=== PATIENT | female | born 1975 | race Caucasian/White ===

== ENCOUNTER 2019-12-07 17:29 | Emergency (ER) | payer SELFPAY ==
[~2019-12-07] VITALS: Ht 154.9 cm; Wt 88.4 kg
[~2019-12-07 17:29] MED LIST: ALBU2.5V8 INH; CIPR250T30 PO; DIPH25CA58 PO; HYDR-2761 PO; MINO100C42 PO; PRED20TA PO; TRAZ-118 PO
[2019-12-07 17:47] VITALS: BP 127/91
[2019-12-07] MEDS ORDERED: PRED50TA PO (18:05)
[2019-12-07] MEDS ORDERED: FLUT9.9S NS (18:05)
--- NOTE | 2019-12-07 18:06 | PHYS DOC ---
Past Medical History Past Medical History: Anxiety, Asthma Past Surgical History: Tonsillectomy Smoking Status: Never Smoker Alcohol Use: Occasionally Drug Use: None General Adult EDM: Chief Complaint: EARACHE/EAR PAIN HPI: HPI: Patient is a 44 year old female with a history of asthma, anxiety, seasonal allergies, who presents to the ED today complaining of nasal congestion, bilateral ear pain, symptoms have been going on for couple days. She states she is currently using Claritin after switching from Zyrtec. Patient states her job sent her to the ED to be evaluated to be tested for COVID19. She states she does not want to be tested for COVID19 because she cannot afford the cost. Review of Systems: Review of Systems: Constitutional: Denies fever or chills. [] Eyes: Denies change in visual acuity. [] HENT: Reports bilateral ear pain, nasal congestion, Respiratory: Denies cough or shortness of breath. [] Cardiovascular: Denies chest pain or edema. [] GI: Denies abdominal pain, nausea, vomiting, bloody stools or diarrhea. [] : Denies dysuria. [] Musculoskeletal: Denies back pain or joint pain. [] Integument: Denies rash. [] Neurologic: Denies headache, focal weakness or sensory changes. [] Psychiatric: Denies depression or anxiety. [] Heart Score: Risk Factors: Risk Factors: DM, Current or recent (<one month) smoker, HTN, HLP, family history of CAD, obesity. Risk Scores: Score 0 - 3: 2.5% MACE over next 6 weeks - Discharge Home Score 4 - 6: 20.3% MACE over next 6 weeks - Admit for Clinical Observation Score 7 - 10: 72.7% MACE over next 6 weeks - Early Invasive Strategies Allergies: Allergies: Allergies Coded Allergies Type Severity Reaction Last Updated Verified codeine Allergy Mild "itching" 06/02/16 Yes I S O L A T I O N *CONTACT* Allergy Unknown 06/08/16 Yes Physical Exam: PE: Constitutional: Well developed, well nourished, no acute distress, non-toxic appearance. [] HENT: Normocephalic, atraumatic, bilateral external ears normal, oropharynx moist, no oral exudates, nose normal. [] Eyes: PERRLA, EOMI, conjunctiva normal, no discharge. [] Neck: Normal range of motion, no tenderness, supple, no stridor. [] Cardiovascular:Heart rate regular rhythm, no murmur [] Lungs & Thorax: Bilateral breath sounds clear to auscultation [] Abdomen: Bowel sounds normal, soft, no tenderness, no masses, no pulsatile masses. [] Skin: Warm, dry, no erythema, no rash. [] Back: No tenderness, no CVA tenderness. [] Extremities: No tenderness, no cyanosis, no clubbing, ROM intact, no edema. [] Neurologic: Alert and oriented X 3, normal motor function, normal sensory function, no focal deficits noted. [] Psychologic: Affect normal, judgement normal, mood normal. [] Current Patient Data: Vital Signs: Vital Signs Date Time Temp Pulse Resp B/P (MAP) Pulse Ox O2 Delivery O2 Flow Rate FiO2 12/07/19 17:47 98.4 82 16 127/91 (103) 97 Room Air 98.4 EKG: EKG: [] Radiology/Procedures: Radiology/Procedures: [] Course & Med Decision Making: Course & Med Decision Making Pertinent Labs and Imaging studies reviewed. (See chart for details) This is a 44-year-old female patient presenting to the ED today with seasonal allergy symptoms. She is currently on Claritin, her job sent her for COVID19 testing, patient states she does not have any indication for be tested for COVID 19. Neither does she want to incur the cost. She was given instructions to continue taking her allergy medicines. Given prescription for Flonase and prednisone to help up with her allergies. Follow-up with her PCP in 1 to 2 weeks. Shant Disclaimer: Shant Disclaimer: This electronic medical record was generated, in whole or in part, using a voice recognition dictation system. Departure Departure Impression: Primary Impression: Seasonal allergies Disposition: 01 HOME, SELF-CARE Condition: STABLE Referrals: NO PCP (PCP) follow up with your doctor in 1-2 weeks Patient Instructions: Allergies, Generic Additional Instructions: You were seen for seasonal allergies. Take Claritin-D for 3 days and see how it goes. Use the rest of the prescribed medications as ordered. Follow-up with your doctor in 1 week Scripts Fluticasone Propionate (Flonase Allergy Relief) 9.9 Ml [email or web address] 2 SPRAYS NS DAILY, #1 BOTTLE Prov: MUTUNGA,ESTELLE [employer]ACTIVE DEVELOPER 12/07/19 Prednisone (PREDNISONE) 50 Mg Tablet 1 TAB PO DAILY, #5 TAB Prov: ESTELLE REHMAN APRN 12/07/19 ESTELLE REHMAN APRN December 07, 2019 18:06
== END 2019-12-07 18:23 | disposition home or self-care (01) ==
LOC: ER 17:29
DX: J45.909 Unspecified asthma, uncomplicated (principal); H92.03 Otalgia, bilateral; Z90.89 Acquired absence of other organs; Z91.041 Radiographic dye allergy status; Z88.5 Allergy status to narcotic agent
CPT/HCPCS: 99283